=== PATIENT | female | born 1945 | race Caucasian/White ===

== ENCOUNTER 2019-06-05 05:42 | Outpatient (CLI) | payer MEDICARE ==
[~2019-06-05] VITALS: Ht 160 cm; Wt 70.4 kg
[2019-06-05] MEDS ORDERED: MAGN400T39 PO (15:04)
[2019-06-05] MEDS ORDERED: PANT40TA2 PO (15:04)
[2019-06-05] MEDS ORDERED: 5-HY100C3 PO (15:04)
[2019-06-05] MEDS ORDERED: CHOL200078 PO (15:04)
[2019-06-05] MEDS ORDERED: ASPI-586 PO (15:04)
[2019-06-05] MEDS ORDERED: CALC-823 PO (15:04)
[2019-06-05] MEDS ORDERED: OMG1KC PO (15:04)
[2019-06-05] MEDS ORDERED: LOVA10TA PO (15:04)
[2019-06-09] MEDS ORDERED: PHEN-640 PO (08:52)
[2019-06-09] MEDS ORDERED: NITR-65 PO (08:52)
== END 2019-06-05 15:15 | disposition home or self-care (01) ==
LOC: PREOP 05:42
PROVIDERS: ATTEND Urology
DX: Z01.818 Encounter for other preprocedural examination (principal)

== ENCOUNTER 2019-06-10 16:16 | Emergency (ER) | payer MEDICARE ==
[~2019-06-10] VITALS: Ht 160 cm; Wt 68.0 kg
[~2019-06-10 16:16] MED LIST: 5-HY100C3 PO; ASPI-586 PO; CALC-823 PO; CHOL200078 PO; LOVA10TA PO; MAGN400T39 PO; NITR-65 PO; OMG1KC PO; PANT40TA2 PO; PHEN-640 PO
[2019-06-10] MEDS ORDERED: DIATRIZOATE MEGLUM/SODIUM 37% 120 ML (GASTROGRAFIN) PO ONE (16:45)
[2019-06-10 16:49] LABS: CLARITY,URINE CLEAR; GLUCOSE, URINE (UA) TRACE (NEGATIVE); KETONES,URINE 1+ (NEGATIVE); LEUKOCYTE ESTERASE ,URINE 2+ (NEGATIVE); NITRITE,URINE POSITIVE (NEGATIVE); PROTEIN,URINE 2+ (NEGATIVE)
--- NOTE | 2019-06-10 16:49 | ED Abdominal Pain ---
General Chief Complaint: Abdominal/GI Problems Stated Complaint: ABD PAIN Nursing Triage Note: pt sent over from dr otto office for workup of lower abd pain. pt had bladder tumors removed yesterday. Sepsis Screen: No Definite Risk Source of Information: Patient, Family (daughter) Exam Limitations: No Limitations History of Present Illness Date Seen by Provider: Jun 10, 2019 Time Seen by Provider: 16:23 Initial Comments The patient resents to ER by private conveyance with chief complaint that she was sent over from Dr. Elkins's office. Yesterday she had tumors removed from her bladder. This morning she woke up with pressure and fullness in her superpubic region and inability to urinate so she went to see Dr. Elkins in the clinic. He placed a Cox catheter which relieved some of the pressure she still having a little pain. She's been using the Pyridium and hyoscyamine with minimal relief. She does not want anything further for pain right now. Dr. Odell communicated with the emergency room that he would like a CT cystogram to rule out a possible perforation both over the phone as well as with written documentation sent with the patient. Patient endorses hematuria. No fevers nausea vomiting diarrhea constipation. Allergies and Home Medications Allergies Coded Allergies: prednisone (Verified Allergy, Severe, SEVERE DEPRESSION, 06/05/19) pregabalin (Verified Allergy, Intermediate, CRYING, N/V, 06/05/19) Home Medications 5-Hydroxytryptophan 100 Mg Capsule, 100 MG PO BID, (Reported) Calcium Carbonate 500 Mg Tablet, 500 MG PO DAILY, (Reported) Cholecalciferol (Vitamin D3) 2,000 Unit Tab.chew, 2,000 UNIT PO DAILY, (Reported) Lovastatin 10 Mg Tablet, 10 MG PO DAILY, (Reported) Magnesium Oxide 400 Mg Tablet, 400 MG PO DAILY, (Reported) Nitrofurantoin Monohyd/M-Cryst 100 Mg Capsule, 1 TAB PO BID Prescribed by: TERRELL BAUTISTA on 06/09/19851 [place] 3 Polyunsat Fatty Acids 1,000 Mg Cap, 1,000 MG PO DAILY, (Reported) Pantoprazole Sodium 40 Mg Tablet.dr, 40 MG PO DAILY, (Reported) Phenazopyridine HCl 200 Mg Tablet, 1 TAB PO TID PRN for BLADDER SPASMS Prescribed by: TERRELL BAUTISTA on 06/09/19851 Patient Home Medication List Home Medication List Reviewed: Yes Review of Systems Review of Systems Constitutional: No chills, No diaphoresis EENTM: No Blurred Vision, No Double Vision Respiratory: Denies Cough, Denies Shortness of Air Cardiovascular: Denies Chest Pain, Denies Edema Gastrointestinal: See HPI, Abdominal Pain; Denies Constipated, Denies Diarrhea, Denies Nausea Genitourinary: Denies Burning, Denies Discharge; Hematuria, Other (urinary hesitancy) Musculoskeletal: back pain; No joint pain All Other Systems Reviewed Negative Unless Noted: Yes Past Igyiwqx-Urimpk-Mztlgh Hx Patient Social History Alcohol Use: Denies Use Number of Drinks Today: Alcohol Beverage of Choice: Wine Recreational Drug Use: No Smoking Status: Former Smoker Type Used: Cigarettes Former Smoker, Quit: Jun 04, 1976 2nd Hand Smoke Exposure: Yes Recent Foreign Travel: No Contact w/Someone Who Travel: No Recent Infectious Disease Expo: No Recent Hopitalizations: Yes (bladder tumor removed 06/09/2019) Immunizations Up To Date Tetanus Booster (TDap): More than 5yrs Date of Pneumonia Vaccine: Dec 31, 2017 Date of Influenza Vaccine: Dec 30, 2018 Seasonal Allergies Seasonal Allergies: Yes Past Medical History Surgeries: Yes (GANGLION CYST, 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, BLADDER TUMORS X3) Respiratory: No Currently Using CPAP: No Currently Using BIPAP: No Cardiac: Yes High Cholesterol Neurological: No Sexually Transmitted Disease: No HIV/AIDS: No Genitourinary: Yes (BLADDER TUMOR'S) Gastrointestinal: Yes Gastroesophageal Reflux Musculoskeletal: Yes Arthritis, Chronic Back Pain Endocrine: No HEENT: Yes (READING GLASSES, DENTURES) Cancer: Yes Bladder, Skin Did You Recieve Any Treatments: Yes What Type of Treatment Did You: Surgical Intervention Psychosocial: Yes Anxiety Integumentary: No Blood Disorders: No Adverse Reaction/Blood Tranf: No Physical Exam Vital Signs Vital Signs - First Documented 06/10/19 16:20 Temp 36.8 Pulse 71 Resp 20 B/P (MAP) 136/62 (86) Pulse Ox 91 O2 Delivery Room Air Capillary Refill : Less Than 3 Seconds Height/Weight/BMI Height: '" Weight: lbs. oz. kg; 26.00 BMI Method: General Appearance: WD/WN, mild distress HEENT: PERRL/EOMI, pharynx normal Neck: full range of motion, normal inspection Respiratory: no respiratory distress, no accessory muscle use Cardiovascular: normal peripheral pulses, regular rate, rhythm Peripheral Pulses: 2+ Radial Pulses (R), 2+ Radial Pulses (L) Gastrointestinal: normal bowel sounds, soft, distended (mild distention over the suprapubic region with tenderness and guarding), guarding, tenderness (suprapubic) Neurologic/Psychiatric: alert, normal mood/affect, oriented x 3 Skin: normal color, warm/dry Progress/Results/Core Measures Results/Orders Lab Results Laboratory Tests Test 06/10/19 16:44 06/10/19 16:45 Range/Units Urine Color ORANGE Urine Clarity CLEAR Urine pH 5.0 5-9 Urine Specific [place] 1.010 L 1.016-1.022 Urine Protein 2+ H NEGATIVE Urine Glucose (UA) TRACE H NEGATIVE Urine Ketones 1+ H NEGATIVE Urine Nitrite POSITIVE H NEGATIVE Urine Bilirubin 1+ H NEGATIVE Urine Urobilinogen >=8.0 < = 1.0 MG/DL Urine Leukocyte Esterase 2+ H NEGATIVE Urine RBC (Auto) 2+ H NEGATIVE Urine RBC NONE /HPF Urine WBC RARE /HPF Urine Squamous Epithelial Cells RARE /HPF Urine Crystals NONE /LPF Urine Bacteria TRACE /HPF Urine Casts NONE /LPF Urine Mucus NEGATIVE /LPF Urine Culture Indicated NO White Blood Count 11.0 4.3-11.0 10^3/uL Red Blood Count 3.91 L 4.35-5.85 10^6/uL Hemoglobin 11.9 11.5-16.0 G/DL Hematocrit 37 35-52 % Mean Corpuscular Volume 94 80-99 FL Mean Corpuscular Hemoglobin 30 25-34 PG Mean Corpuscular Hemoglobin Concent 32 32-36 G/DL Red Cell Distribution Width 14.0 10.0-14.5 % Platelet Count 291 130-400 10^3/uL Mean Platelet Volume 9.8 7.4-10.4 FL Neutrophils (%) (Auto) 76 H 42-75 % Lymphocytes (%) (Auto) 14 12-44 % Monocytes (%) (Auto) 8 0-12 % Eosinophils (%) (Auto) 2 0-10 % Basophils (%) (Auto) 0 0-10 % Neutrophils # (Auto) 8.4 H 1.8-7.8 X 10^3 Lymphocytes # (Auto) 1.5 1.0-4.0 X 10^3 Monocytes # (Auto) 0.9 0.0-1.0 X 10^3 Eosinophils # (Auto) 0.2 0.0-0.3 10^3/uL Basophils # (Auto) 0.0 0.0-0.1 10^3/uL Sodium Level 132 L 135-145 MMOL/L Potassium Level 4.3 3.6-5.0 MMOL/L Chloride Level 98 98-107 MMOL/L Carbon Dioxide Level 22 21-32 MMOL/L Anion Gap 12 5-14 MMOL/L Blood Urea Nitrogen 17 7-18 MG/DL Creatinine 1.95 H 0.60-1.30 MG/DL Estimat Glomerular Filtration Rate 25 BUN/Creatinine Ratio 9 Glucose Level 101 70-105 MG/DL Calcium Level 9.2 8.5-10.1 MG/DL My Orders Orders - DEON COVARRUBIAS Ct Cystogram (06/10/19 16:24) Cbc With Automated Diff (06/10/19 16:25) Basic Metabolic Panel (06/10/19 16:25) Ua Culture If Indicated (06/10/19 16:25) Diatrizoate Meglum/Sodium 37% (Gastrogra (06/10/19 16:45) Ceftriaxone For Iv Use (Rocephin For I (06/10/19 17:45) Vital Signs/I&O 06/10/19 16:20 Temp 36.8 Pulse 71 Resp 20 B/P (MAP) 136/62 (86) Pulse Ox 91 O2 Delivery Room Air Blood Pressure Mean: 86 Progress Progress Note #1: Time: 16:47 Progress Note Urine in the bag looks Pyridium orange colored. Plan to get a CT cystogram after some basic labs prove her kidney function is sufficient. Collect a urine for urinalysis and culture. She has declined anything for pain. Progress Note #2: Time: 17:[address] Odell came down with the patient reviewed imaging with Dr. Awan, radiology and feels that there is no intraperitoneal perforation. He will give her a gram of Rocephin and change her Macrobid to ciprofloxacin as there is some urine outside the urethra extraperitoneally. Diagnostic Imaging Diagonstic Imaging: CT (cystogram) Plain Films/CT/US/NM/MRI: abdomen, pelvis Reviewed: Reviewed by Me Departure Impression Primary Impression: Urinary retention Additional Impressions: Bladder tumor Elevated serum creatinine Disposition: 01 HOME, SELF-CARE Condition: Stable Departure-Patient Inst. Decision time for Depature: 17:47 Referrals: NO,LOCAL PHYSICIAN (PCP/Family) Primary Care Physician Patient Instructions: Urinary Retention (DC) Add. Discharge Instructions: Keep your follow-up plans with the urologist. Return to the ER if you develop fevers or intractable pain that does not respond to the Levsin and Tylenol. Stop taking the Macrobid. Start taking ciprofloxacin 500 mg every 18 hours for the next 7 days. Drink plenty of fluids. I suspect that you're kidney function we will improve with fluids and antibiotics. You should discuss this with your primary care doctor when you see her next. All discharge instructions reviewed with patient and/or family. Voiced understanding. Scripts Ciprofloxacin HCl (Ciprofloxacin HCl) 500 Mg Tablet 500 MG PO Q18H for 7 Days, #9 TAB 0 Refills Prov: DEON COVARRUBIAS 06/10/19 DEON COVARRUBIAS Jun 10, 2019 16:49
[2019-06-10 16:52] LABS: BASOPHILS % (AUTO) 0 % (0-10); EOSINOPHILS # (AUTO) 0.2 10^3/uL (0.0-0.3); EOSINOPHILS % (AUTO) 2 % (0-10); HEMATOCRIT 37 % (35-52); HEMOGLOBIN 11.9 G/DL (11.5-16.0); LYMPHOCYTES # (AUTO) 1.5 X 10^3 (1.0-4.0); LYMPHOCYTES % (AUTO) 14 % (12-44); MEAN CORPUSCULAR HEMOGLOBIN 30 PG (25-34); MEAN CORPUSCULAR HGB CONC 32 G/DL (32-36); MEAN CORPUSCULAR VOLUME 94 FL (80-99); MEAN PLATELET VOLUME 9.8 FL (7.4-10.4); MONOCYTES # (AUTO) 0.9 X 10^3 (0.0-1.0); MONOCYTES % (AUTO) 8 % (0-12); NEUTROPHILS # (AUTO) 8.4 X 10^3 (1.8-7.8); NEUTROPHILS % (AUTO) 76 % (42-75); PLATELET COUNT 291 10^3/uL (130-400)
[2019-06-10 17:00] LABS: BILIRUBIN,URINE 1+ (NEGATIVE)
[2019-06-10 17:05] LABS: COLOR,URINE ORANGE
[2019-06-10 17:06] LABS: BACTERIA,URINE TRACE /HPF; SQUAMOUS EPITHELIAL CELL,UR RARE /HPF; WBC,URINE RARE /HPF
[2019-06-10 17:08] LABS: CALCIUM 9.2 MG/DL (8.5-10.1); CREATININE SERUM 1.95 MG/DL (0.60-1.30); POTASSIUM 4.3 MMOL/L (3.6-5.0)
[2019-06-10] MEDS ORDERED: cefTRIAXone FOR IV USE 1,000 MG in WATER (STERILE) FOR INJECTION 10 ML IV ONE (17:45)
[2019-06-10] MEDS ORDERED: IOHEXOL 350 MG/ML 100 ML (OMNIPAQUE 350) VIAL IV ONE (17:45)
[2019-06-10] MEDS ORDERED: CIPR500T4 PO (17:50)
[2019-06-10 18:15] VITALS: BP 137/69
--- NOTE | 2019-06-10 18:22 | Diagnostic Imaging Report ---
Recent bladder surgery and questionable bladder perforation. A mixture of 300 mL of water and 75 mL of Omnipaque 350 was injected into the patient's indwelling Cox catheter. Axial imaging was performed both before and after bladder contrast administration. Precontrast imaging does show a moderate amount of free intraperitoneal fluid. Bladder is decompressed by a Cox catheter. Uterus is unremarkable. There is diverticulosis of the sigmoid colon. Postcontrast injection demonstrates contrast within the bladder. There is extracystic contrast collecting along the superior aspect of the bladder and extending towards the left aspect of the urinary bladder. No hyperdense contrast is seen within the intraperitoneal fluid. Contrast likely remains extraperitoneal. The exact site of perforation is difficult to ascertain on these images. The delayed images demonstrate contrast on both the right and left sides of the urinary bladder, as well as along the dome. IMPRESSION: Extracystic bladder contrast consistent with perforation. Contrast appears to be extraperitoneal along the bladder dome, left and right aspects of the bladder. Note is also made of free intraperitoneal free fluid, etiology indeterminate. Dictated by: Dictated on workstation # [id number]
--- OUTSIDE RECORDS SUMMARY | 2019-06-10 21:13 | XMS REPORT | Continuity of Care Document ---
Author Organization Unknown Address Unknown Phone Unavailable Allergies Active Description Code Type Severity Reaction Onset Reported/Identified Relationship to Patient Clinical Status Yes prednisone [id number] Drug Allerg y Severe SEVERE DEPRESSI 06/05/2019 Yes pregabalin [id number] Drug Allerg y Moderate CRYING, N/V 06/05/2019 Medications There is no data. Problems Date Dx Coded Attending Type Code Diagnosis Diagnosed By 06/05/2019 CYNTHIA OLVERA, ALYSSA Elizalde Ot Z01.8 18 ENCOUNTER FOR OTHER PREPROCEDURAL EXAMIN Procedures There is no data. Results There is no data. Encounters ACCT No. Visit Date/Time Discharge Status Pt. Type Provider Facility Loc./Unit Complaint [id number] 06/10/2019 16:18:00 020 18:15:00 DIS Emergency DEON COVARRUBIAS MD [facility] ER ABD PAIN [id number] 06/09/2019 07:51:00 13:36:00 DIS Outpatient ALYSSA MARIE MD [facility] BLADDER TUMOR [id number] 06/05/2019 05:42:00 020 15:15:00 DIS Outpatient ALYSSA MARIE MD [facility] PREOP BLADDER TUMOR
== END 2019-06-10 18:15 | disposition home or self-care (01) ==
LOC: EDUNIT# 16:16 → ER 16:18
DX: C67.9 Malignant neoplasm of bladder, unspecified (principal); R79.89 Other specified abnormal findings of blood chemistry; E78.00 Pure hypercholesterolemia, unspecified; K21.9 Gastro-esophageal reflux disease without esophagitis; Z88.8 Allergy status to other drugs, medicaments and biological substances; Z85.828 Personal history of other malignant neoplasm of skin; Z87.891 Personal history of nicotine dependence; Z77.22 Contact with and (suspected) exposure to environmental tobacco smoke (acute) (chronic)
CPT/HCPCS: 36415; 72192; 80048; 81000; 85025